=== PATIENT | female | born 1945 | race Caucasian/White ===

== ENCOUNTER 2020-07-21 09:45 | Observation (INO) ==
[~2020-07-21 09:45] MED LIST: Buffered Lidocaine 1% SYRIN 1 ml INTRADERM ONE; Dexamethasone IV 4 MG/ML VIAL 1 ml VIAL IV SLOW PU ONE; Famotidine IV 10 MG/ML 2 ml VIAL (20 mg) IV ONE; Lactated Ringers 1000 ml BAG 1,000 ML IV SCH
[2020-07-21] MEDS ORDERED: Naloxone 0.4 mg VIAL 0.4 mg/ml 1 ml VIAL IV PRN (10:06)
[2020-07-21] MEDS ORDERED: Prochlorperazine 5 mg/ml 2 ml VIAL (10 mg) IV PRN (10:06)
[2020-07-21] MEDS ORDERED: Acetaminophen IV 1 GM/100ML 1,000 MG/100 ML VIAL IVPB ONE (10:06)
[2020-07-21] MEDS ORDERED: Morphine 4 MG/ML VIAL (1 ml) IV PRN (10:06)
[2020-07-21] MEDS ORDERED: fentaNYL 100 mcg/2 ml 50 MCG/ML VIAL IV PRN (10:06)
[2020-07-21] MEDS ORDERED: Clindamycin 900 MG/D5W BAG 900 MG/50 ML BAG IVPB ONE (10:16)
[2020-07-21] MEDS ORDERED: Dexamethasone IV 4 MG/ML VIAL 1 ml VIAL ONE (10:16)
[2020-07-21] MEDS ORDERED: Famotidine IV 10 MG/ML 2 ml VIAL (20 mg) ONE (10:16)
[2020-07-21] MEDS ORDERED: fentaNYL 100 mcg/2 ml 50 MCG/ML VIAL ONE (12:12)
[2020-07-21] MEDS ORDERED: Midazolam 2 mg/2 ml VIAL 1 mg/ml 2 ml VIAL (2 mg) ONE ×3 (12:12→13:05)
[2020-07-21] MEDS ORDERED: ROPIVACAINE 5 MG/ML 30 ML BTL (0.5%) ONE ×2 (12:14→12:30)
[2020-07-21] MEDS ORDERED: Propofol 10 MG/ML 20 ML BTL ONE ×3 (13:12→14:35)
[2020-07-21] MEDS ORDERED: Lidocaine 2% PF 5 ML VIAL ONE (13:13)
[2020-07-21] MEDS ORDERED: Ondansetron ODT 4 mg TAB 4 MG TAB PO PRN (15:40)
[2020-07-21] MEDS ORDERED: Magnesium Hydroxide LIQ 30 ML UDC PO PRN (15:40)
[2020-07-21] MEDS ORDERED: Morphine 2 MG/ML SYRINGE IV PRN (15:40)
[2020-07-21] MEDS ORDERED: diPHENhydraMINE IV 50 MG/ML 1 ml VIAL (BENADRYL) IV PRN (15:40)
[2020-07-21] MEDS ORDERED: diPHENhydraMINE 25 mg TAB PO PRN (15:40)
[2020-07-21] MEDS ORDERED: oxyCODONE/Acetamin 5/325 mg TAB PO PRN (15:40)
[2020-07-21] MEDS ORDERED: Lactulose 30 ml UDC PO PRN (15:40)
[2020-07-21] MEDS ORDERED: Ondansetron 4 mg VIAL 2 MG/ML 2 ml VIAL IV PRN (15:40)
[2020-07-21] MEDS: oxyCODONE/Acetamin 5/325 mg TAB PO PRN ×2 (18:06→21:20)
[2020-07-21] MEDS: Lactated Ringers 1000 ml BAG 1,000 ML IV SCH (19:08)
[2020-07-21] MEDS: Magnesium Hydroxide LIQ 30 ML UDC PO SCH (20:50)
[2020-07-21] MEDS: Clindamycin 600 MG/D5W BAG 600 MG/50 ML BAG IV SCH (20:51)
[2020-07-22] MEDS: Lactated Ringers 1000 ml BAG 1,000 ML IV SCH (03:20)
[2020-07-22 04:52] LABS: Hematocrit 35 % (35-47); Hemoglobin 12.2 g/dL (12.0-16.0); Mean Platelet Volume 9.1 fL (7.4-10.4); Platelet Count 227 10^3/uL (150-450)
[2020-07-22 05:17] LABS: BUN/Creatinine Ratio 15.8 (8-20); Calcium 8.6 mg/dL (8.6-10.3); EGFR African American 89.8 (>60); EGFR Non-African American 74.2 (>60); Potassium 4.2 mmol/L (3.5-5.0)
[2020-07-22] MEDS: Clindamycin 600 MG/D5W BAG 600 MG/50 ML BAG IV SCH ×2 (05:26→13:17)
[2020-07-22] MEDS: Magnesium Hydroxide LIQ 30 ML UDC PO SCH (08:57)
[2020-07-22] MEDS ORDERED: Vitamin THERAPEUTIC TAB PO SCH (09:00)
[2020-07-22 11:31] VITALS: BP 116/55
== END 2020-07-22 14:15 | disposition home or self-care (01) ==
LOC: AA 10:33 → INTOOBSV 10:33 → SSU 15:40
PROVIDERS: ADMIT Orthopaedic Surgery Adult Reconstructive Orthopaedic Surgery; ATTEND Orthopaedic Surgery Adult Reconstructive Orthopaedic Surgery

== ENCOUNTER 2020-11-09 10:55 | Inpatient (IN) ==
[~2020-11-09 10:55] MED LIST changes: -Dexamethasone IV 4 MG/ML VIAL 1 ml VIAL IV SLOW PU ONE; +Lidocaine 2% PF 5 ML VIAL ONE; +Phenylephrine IV 10 MG/ML 1 ml VIAL ONE; +Propofol 10 MG/ML 20 ML BTL ONE
[2020-11-09] MEDS ORDERED: Clindamycin 900 MG/D5W BAG 900 MG/50 ML BAG IVPB ONE (11:40)
[2020-11-09] MEDS ORDERED: Famotidine IV 10 MG/ML 2 ml VIAL (20 mg) ONE (11:40)
[2020-11-09] MEDS ORDERED: Buffered Lidocaine 1% SYRIN 1 ml INTRADERM ONE (11:40)
[2020-11-09 12:19] LABS: INR 1.08 (0.82-1.09)
[2020-11-09] MEDS ORDERED: Glycopyrrolate IV 0.2 MG/ML 1 ML VIAL ONE (13:24)
[2020-11-09] MEDS ORDERED: Ondansetron 4 mg VIAL 2 MG/ML 2 ml VIAL ONE (14:54)
[2020-11-09] MEDS ORDERED: Dexamethasone IV 4 MG/ML VIAL 1 ml VIAL ONE (14:55)
[2020-11-09] MEDS ORDERED: Morphine 2 MG/ML SYRINGE IV PRN (15:07)
[2020-11-09] MEDS ORDERED: diPHENhydraMINE IV 50 MG/ML 1 ml VIAL (BENADRYL) IV PRN (15:07)
[2020-11-09] MEDS ORDERED: Ondansetron ODT 4 mg TAB 4 MG TAB PO PRN (15:07)
[2020-11-09] MEDS ORDERED: diPHENhydraMINE 25 mg TAB PO PRN (15:07)
[2020-11-09] MEDS ORDERED: Lactulose 30 ml UDC PO PRN (15:07)
[2020-11-09] MEDS ORDERED: Ondansetron 4 mg VIAL 2 MG/ML 2 ml VIAL IV PRN (15:07)
[2020-11-09] MEDS ORDERED: Magnesium Hydroxide LIQ 30 ML UDC PO PRN (15:07)
[2020-11-09] MEDS ORDERED: oxyCODONE/Acetamin 5/325 mg TAB PO PRN (15:07)
[2020-11-09] MEDS ORDERED: Lactated Ringers 1000 ml BAG 1,000 ML IV SCH (16:00)
[2020-11-09] MEDS ORDERED: fentaNYL 100 mcg/2 ml 50 MCG/ML VIAL ONE (16:15)
[2020-11-09] MEDS ORDERED: NS 0.9% 1000 ML/HR X 1 BAG (TOTAL 1000 ML) IV ONE (20:00)
[2020-11-09] MEDS: Magnesium Hydroxide LIQ 30 ML UDC PO SCH (23:32)
[2020-11-09] MEDS: Clindamycin 600 MG/D5W BAG 600 MG/50 ML BAG IV SCH (23:40)
[2020-11-10 05:47] LABS: Hematocrit 27 % (35-47); Hemoglobin 9.3 g/dL (12.0-16.0); Mean Platelet Volume 9.1 fL (7.4-10.4); Platelet Count 217 10^3/uL (150-450)
[2020-11-10] MEDS: Clindamycin 600 MG/D5W BAG 600 MG/50 ML BAG IV SCH ×2 (05:50→14:43)
[2020-11-10 06:04] LABS: BUN/Creatinine Ratio 15.9 (8-20); Calcium 7.7 mg/dL (8.6-10.3); EGFR African American 100.4 (>60); EGFR Non-African American 82.9 (>60); Potassium 4.1 mmol/L (3.5-5.0)
[2020-11-10] MEDS: Magnesium Hydroxide LIQ 30 ML UDC PO SCH ×2 (08:22→22:06)
[2020-11-10] MEDS: Vitamin THERAPEUTIC TAB PO SCH (08:23)
[2020-11-10 14:27] LABS: BUN/Creatinine Ratio 13.6 (8-20); Calcium 8.2 mg/dL (8.6-10.3); EGFR African American 63.2 (>60); EGFR Non-African American 52.2 (>60); Potassium 4.1 mmol/L (3.5-5.0)
[2020-11-11 04:31] LABS: Hematocrit 22 % (35-47); Mean Platelet Volume 8.5 fL (7.4-10.4); Platelet Count 180 10^3/uL (150-450)
[2020-11-11 04:48] LABS: BUN/Creatinine Ratio 18.4 (8-20); Calcium 7.8 mg/dL (8.6-10.3); EGFR African American 76.8 (>60); EGFR Non-African American 63.5 (>60); Potassium 4.2 mmol/L (3.5-5.0)
[2020-11-11] MEDS: Magnesium Hydroxide LIQ 30 ML UDC PO SCH (09:00)
[2020-11-11] MEDS: Vitamin THERAPEUTIC TAB PO SCH (09:00)
[2020-11-11 13:06] VITALS: BP 112/58
== END 2020-11-11 13:20 | disposition home or self-care (01) | DRG 470 ==
LOC: OR 10:55 → SSU 10:55
PROVIDERS: ADMIT Orthopaedic Surgery Adult Reconstructive Orthopaedic Surgery; ATTEND Orthopaedic Surgery Adult Reconstructive Orthopaedic Surgery

== ENCOUNTER 2021-09-14 13:59 | Observation (INO) ==
[~2021-09-14 13:59] MED LIST changes: +Bupivacaine 0.5% SDV PF 30ML VIAL ONE; +Clindamycin 900 MG/D5W BAG 900 MG/50 ML BAG IVPB ONE; +Dexamethasone IV 4 MG/ML VIAL 1 ml VIAL ONE; +Dexmedetomidine 200 mcg/2 ml 2 ml VIAL (200 mcg) ONE; +DiMENhydriNATE IV 50 mg/ml 1 ml VIAL IV PUSH PRN; +DiMENhydriNATE IV 50 mg/ml 1 ml VIAL ONE; -Famotidine IV 10 MG/ML 2 ml VIAL (20 mg) IV ONE; +Lactulose 30 ml UDC PO PRN; +Magnesium Hydroxide LIQ 30 ML UDC PO PRN; +Midazolam 2 mg/2 ml VIAL 1 mg/ml 2 ml VIAL (2 mg) ONE; +Morphine 2 MG/ML SYRINGE IV PRN; +Naloxone 0.4 mg VIAL 0.4 mg/ml 1 ml VIAL IV PRN; +Ondansetron 4 mg VIAL 2 MG/ML 2 ml VIAL IV PRN; +Ondansetron 4 mg VIAL 2 MG/ML 2 ml VIAL ONE; +Ondansetron ODT 4 mg TAB 4 MG TAB PO PRN; -Phenylephrine IV 10 MG/ML 1 ml VIAL ONE; +ROPIVACAINE 5 MG/ML 30 ML BTL (0.5%) ONE; +Ropivacaine 5 MG/ML 20 ML VIAL 0.5% (100 MG) ONE; +diPHENhydraMINE 25 mg TAB PO PRN; +diPHENhydraMINE IV 50 MG/ML 1 ml VIAL (BENADRYL) IV PRN; +fentaNYL 100 mcg/2 ml 50 MCG/ML VIAL IV PRN; +fentaNYL 100 mcg/2 ml 50 MCG/ML VIAL ONE
[2021-09-14] MEDS ORDERED: Propofol 10 MG/ML 20 ML BTL ONE (16:29)
[2021-09-14] MEDS: Clindamycin 600 MG/D5W BAG 600 MG/50 ML BAG IV SCH (17:41)
[2021-09-14] MEDS: Magnesium Hydroxide LIQ 30 ML UDC PO SCH (20:36)
[2021-09-15] MEDS: Clindamycin 600 MG/D5W BAG 600 MG/50 ML BAG IV SCH ×2 (02:13→09:57)
[2021-09-15 06:07] LABS: Hematocrit 37 % (35-47); Hemoglobin 12.6 g/dL (12.0-16.0); Mean Platelet Volume 9.1 fL (7.4-10.4); Platelet Count 243 10^3/uL (150-450)
[2021-09-15 06:24] LABS: Calcium 8.2 mg/dL (8.6-10.3); Potassium 4.2 mmol/L (3.5-5.0); eGFR CKD-EPI 67.1 (>60)
[2021-09-15 06:52] LABS: Ferritin 166.5 ng/mL (11-307)
[2021-09-15] MEDS: Magnesium Hydroxide LIQ 30 ML UDC PO SCH (08:35)
[2021-09-15] MEDS ORDERED: Vitamin THERAPEUTIC TAB PO SCH (09:00)
[2021-09-15 12:12] VITALS: BP 126/72
[2021-09-17 09:38] LABS: % Iron Saturation 10 % (14 - 50); Total Iron Binding Capacity 230 mcg/dL (250 - 400)
== END 2021-09-15 05:16 | disposition home or self-care (01) ==
LOC: SSU 13:59 → OR 13:59
PROVIDERS: ADMIT Orthopaedic Surgery Adult Reconstructive Orthopaedic Surgery; ATTEND Orthopaedic Surgery Adult Reconstructive Orthopaedic Surgery